=== PATIENT | female | born 1995 | race Caucasian/White ===

== ENCOUNTER 2021-03-28 21:37 | Inpatient (IN) ==
[2021-03-28] MEDS ORDERED: LACTATED RINGER'S 1,000 ML IV PRN (23:34)
[2021-03-28] MEDS ORDERED: OXYTOCIN 30 UNITS/500 ML BAG IV PRN ×2 (23:34→23:50)
--- NOTE | 2021-03-28 23:46 | History & Physical Report ---
Date of Service March 28, 2021 Assessment & Plan (1) Postmaturity , 40-42 weeks gestation: (2) PROM (premature rupture of membranes): Plan: fetus category one, gbs negative. not laboring currently, srom x 7 hours. Discussed options of continued expectant management as no need to perez things OR starting pitocin now to get labor going. Discussed the risks of prolonged rupture and the risk of infection really starting to go up at 24 hours. They are considering their options. Did discuss that at 12 hours , if no significant contractions, probably really need to consider pitocin augmentation. They express understanding. anticipate . History of Present Illness Chief Complaint: rom Primary Care Provider: John Jones MD Patient is a 25yowf with iup at 40 4/7 who presents to labor and delivery with intermittent gushing of fluid. First noted at work at 4:30pm--underwear soaked and onto pants. Has noted intermittently since then, clear. Does not smell like urine. Has not really noted the onset of contractions. +fm. essentially uncomplicated. +sma but fob tested negative. labs--O+/ab-/ri/rprnr/hepb-/hiv-/gtt x 2 neg/ afp neg/ cf neg/ cfDNA low risk/ gc/ct neg/ gbs neg. Allergies Allergy/AdvReac Type Severity Reaction Status Date / Time No Known Allergies Allergy Verified 03/28/21 21:58 Home Medications Medication Instructions Recorded Confirmed Type doxylamine 10 mg-pyridoxine (vit 1 tab PO HS 08/26/20 03/28/21 History B6) 10 mg tablet,delayed release (Diclegis) ketoconazole 2 % shampoo 1 applic TOPICAL 3XWK #360 ml 11/13/20 03/28/21 Rx diphenhydramine HCl 50 mg capsule 50 mg PO HS 12/20/20 03/28/21 History ([employer] SleepGels) vit no.95-ferrous 1 tab PO HS 12/20/20 03/28/21 History fumarate 28 mg-folic acid 800 mcg tablet () Patient History Medical History Anxiety and depression no meds Leukocytosis Seborrheic dermatitis of scalp Surgical History S/P wisdom tooth extraction Family History Brother VSD (ventricular septal defect) Other Asthma Depression Diabetes Dyslipidemia Heart disease Hypertension Denies family history of Cervical cancer Ovarian cancer Breast cancer Colorectal cancer Uterine cancer Social History Smoking Status: Never smoker Hx Alcohol Use: No Hx Substance Use: No Preferred Language: Tuvaluan Communication Ability: Effective 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 marital status: marital status details: Maco (24) [phone] Current Living Situation: Spouse Current Living Situation Comment: house with current occupational status: employed and student current occupation: external relations director, getting masters in [employer] Other Information That Helps Us Care for You: No Feels Safe at Home: Yes Safety Concerns: Feels Safe At This Time Assistive Devices: None 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 efm--120s with mod variability, accels to 160s, no decels. Results & Data ([facility]) Vital Signs (Past 12 Hours) Vital Signs Temp Pulse Resp BP 03/28/21 22:01 36.7 C 86 18 138/89 03/28/21 21:55 36.7 C 93 H 18 148/99 H Code Status & VTE Plan VTE Prophylaxis Plan VTE Prophylaxis will be ordered: No Coding Level of Care Code None Diagnoses Postmaturity , 40-42 weeks gestation O48.0 PROM (premature rupture of membranes) O42.90
[2021-03-29 00:07] LABS: Hematocrit (blood only) 37.3 % (37-47); Hemoglobin 12.9 g/dL (12.0-16.0); Mean Corpuscular Hemoglobin 32.7 pg (25-34); Mean Corpuscular Hgb Conc 34.6 g/dL (32-36); Mean Corpuscular Volume 94.7 fL (80-100); Platelet Count 362 K/uL (130-400); RDW Standard Deviation 45.4 fL (36.4-46.3); Red Blood Count 3.94 M/uL (4.2-5.4); White Blood Count 15.51 K/uL (4.8-10.8)
[2021-03-29 02:55] LABS: Alanine Aminotransferase 21 U/L (12-78); Albumin Level 2.8 gm/dl (3.4-5.0); Aspartate Aminotransferase 17 U/L (15-37); BUN Creatinine Ratio 17.2 (10-20); Blood Urea Nitrogen 10 mg/dl (7-18); Carbon Dioxide 23 mmol/L (21-32); Chloride 109 mmol/L (98-107); Creatinine Clr Calc Pharmacy 147.5 ml/min; Est GFR (African American) > 150.0 ml/min; Est GFR (Non-African American) 131.3 ml/min; Glucose 81 mg/dl (70-99); Potassium 3.6 mmol/L (3.5-5.1); Sodium 139 mmol/L (136-145)
[2021-03-29 02:58] LABS: Albumin Globulin Ratio 0.7 (0.9-2); Alkaline Phosphatase 96 U/L (45-117); Bilirubin,Total 0.4 mg/dl (0.2-1); Globulin 3.8 gm/dl (2.5-4.0); Total Protein 6.6 gm/dl (6.4-8.2)
[2021-03-29] MEDS ORDERED: ONDANSETRON INJ 2 MG/ML 2 ML VIAL IV PRN (04:32)
[2021-03-29] MEDS ORDERED: ONDANSETRON INJ 2 MG/ML 2 ML VIAL ONE (04:33)
--- NOTE | 2021-03-29 04:56 | Labor Progress Brief Note ---
Date of Service March 29, 2021 Subjective Patient got up to the bathroom and had srom, more clear. now much more uncomfortable Assessment & Plan (1) PROM (premature rupture of membranes): Plan: now laboring. Fetus reassuring. Offered epidural, declines. anticipate . Admission and Anticipated Discharge Date Admission Date: March 28, 2021 Physical Exam Constitutional: WD/WN, vitals as above Psychiatric: A+Ox3, euthymic affect Genitourinary: cx--6/7 per nursing toco--q2-3min, pit at 6 efm--120s with mod variability , small accels, variables with some contractions Results & Data ([facility]) Vital Signs (Past 12 Hours) Vital Signs Temp Pulse Resp BP 03/29/21 03:50 76 131/84 03/29/21 03:48 36.7 C 18 03/29/21 02:52 75 137/93 03/29/21 01:50 89 140/96 03/29/21 00:16 36.7 C 106 H 18 140/91 03/28/21 23:30 36.7 C 18 03/28/21 22:01 36.7 C 86 18 138/89 03/28/21 21:55 36.7 C 93 H 18 148/99 H Coding Level of Care Code None Diagnoses PROM (premature rupture of membranes) O42.90
[2021-03-29] MEDS ORDERED: LIDOCAINE 1% LOCAL 20 ML VIAL ONE (05:25)
[2021-03-29] MEDS ORDERED: oxyCODONE/ACETAMINOPHEN 5mg/325mg TAB PO PRN ×2 (05:46→12:50)
[2021-03-29] MEDS ORDERED: ACETAMINOPHEN 325 MG TAB PO PRN ×2 (05:46→12:50)
--- NOTE | 2021-03-29 05:53 | Delivery Summary ---
Vaginal Delivery Summary Date of Service March 29, 2021 Pre-operative Diagnosis: at 40 4/7 prom Post-operative Diagnosis: same Procedure: pitocin augmentation vavd at the outlet left sulcal laceration and repair. EBL: 350cc Anesthesia: local lidocaine Procedure: The patient presented to labor and delivery with prom. She walked for a little and then pitocin augmentation was started. She underwent srom of the forebag and her contractions significantly increased. She went from 6-10cm in about 30 minutes and felt a severe urge to push. The ant lip of the cervix was manually reduced and then the patient pushed with good effort. FHT in the 70s-100 during push . She brought the baby down very well. She was able to get the head to and then secondary to pain, I applied the vacuum and with one pull, the head was brought through the introitus. A viable female infant in keyur position. The nose and mouth were bulb suctioned on the perineum. A tight nuchal cord was identified and clamped and cut on the perineum. The rest of the baby was then delivered without difficulty. The was placed in the maternal abdomen for drying and attention briefly and then was taken to the warmer. Cord blood obtained. Placenta delivered spontaneous, intact with a three vessel cord. Cervix/perineum/rectum were intact. A left sulcal laceration was repaired in the normal standard fashion after infiltrating with 1% lidocaine. Hemostasis obtained with dilute pitocin and fundal massage. Apgars were 7/9. Mother and baby doing well at the end of the delivery. Vaginal Delivery Summary and 2nd Degree LAC (actually just a left sulcal laceration. perineum not involved.) [facility] Vaginal Delivery Charge Delivery Type Details: and 2nd Degree LAC (actually just a left sulcal laceration. perineum not involved.)
[2021-03-29] MEDS: IBUPROFEN 600 MG TAB PO PRN ×3 (06:16→21:39)
[2021-03-29] MEDS ORDERED: SUPERCREAM 0.870% 15 GM JAR EXT PRN (12:50)
[2021-03-29] MEDS ORDERED: BENZOCAINE 20% AER SPR 82.5 GM CAN EXT PRN (12:50)
[2021-03-29] MEDS ORDERED: IBUPROFEN 600 MG TAB PO PRN (12:50)
[2021-03-29] MEDS ORDERED: bisacodyL 10 MG SUPP PR PRN (12:50)
[2021-03-29] MEDS ORDERED: HYDROCORTISONE ACETATE 25 MG SUPP PR PRN (12:50)
[2021-03-29] MEDS ORDERED: OXYTOCIN 30 UNITS/500 ML BAG IV PRN (12:50)
[2021-03-29] MEDS ORDERED: DIPHTHERIA/TETANUS/PERTUSSIS 0.5 ML SYR/VIAL IM ONE (12:50)
[2021-03-29] MEDS: DOCUSATE SODIUM 100 MG CAP PO SCH (20:48)
[2021-03-30 06:45] LABS: Hematocrit (blood only) 26.9 % (37-47); Mean Corpuscular Hemoglobin 31.9 pg (25-34); Mean Corpuscular Hgb Conc 33.5 g/dL (32-36); Mean Corpuscular Volume 95.4 fL (80-100); Mean Platelet Volume 10.5 fL (7.4-10.4); Platelet Count 288 K/uL (130-400); RDW Coefficient of Variation 13.2 % (11.5-14.5); RDW Standard Deviation 45.8 fL (36.4-46.3); Red Blood Count 2.82 M/uL (4.2-5.4); White Blood Count 12.15 K/uL (4.8-10.8)
--- NOTE | 2021-03-30 07:21 | Obstetrical Progress Note ---
Date of Service March 30, 2021 Assessment & Plan (1) Encounter for care and examination after delivery: satisfactory post progress continue current care plan Day #:: 1 Subjective Ambulation: ambulating normally Voiding: incontinence (mild urge incontinence) Passing Gas:: Yes Diet Tolerance:: regular diet Lochia:: Small Feeding Type:: breast feeding Review of Systems All systems reviewed & are unremarkable except as noted in HPI & below Physical Exam Constitutional WD/WN, vitals as above Psychiatric A+Ox3, euthymic affect Genitourinary OB Exam Abdomen: + fundal height Fundus: + firm and + relation to umbilicus (1 below U) Results & Data ([facility]) Vital Signs (Past 12 Hours) Vital Signs Temp Pulse Pulse Resp BP BP BP 03/30/21 05:04 98.2 F 97 H 16 118/79 03/30/21 03:30 98.1 F 94 H 18 130/91 03/29/21 23:18 98.1 F 88 16 127/87 03/29/21 20:00 98.1 F 98 H 126/80 Pulse Ox 03/30/21 05:04 98 03/30/21 03:30 03/29/21 23:18 98 03/29/21 20:00
[2021-03-30] MEDS: DOCUSATE SODIUM 100 MG CAP PO SCH ×2 (07:57→20:28)
[2021-03-30] MEDS: IBUPROFEN 600 MG TAB PO PRN ×2 (07:57→14:57)
[2021-03-30] MEDS: PRENATAL VITAMIN 1 TAB PO SCH (07:57)
[2021-03-30] MEDS ORDERED: bisacodyL 5 MG TABEC PO SCH (20:00)
[2021-03-31] MEDS: IBUPROFEN 600 MG TAB PO PRN ×2 (00:17→07:26)
--- NOTE | 2021-03-31 06:27 | Obstetrical Progress Note ---
Date of Service <Brian Posadas DO - Last Filed: 03/31/21 08:04> March 31, 2021 Assessment & Plan <Brian Posadas DO - Last Filed: 03/31/21 08:04> (1) Encounter for care and examination after delivery: 25 year old s/p Day 3 - Vital signs reviewed and WNL - Hemoglobin reviewed, 9.0 today. - Blood type: O+, GBS0, Rubella Immune - Pt doing well clinically. - Pain controlled on analgesics - Patient counseled on discharge instructions. <Lizz Wilson MD, FACOG - Last Filed: 03/31/21 08:04> (1) Encounter for care and examination after delivery: Subjective <Brian Posadas DO - Last Filed: 03/31/21 08:04> Ambulation: ambulating normally Voiding: no voiding problems Passing Gas:: Yes Diet Tolerance:: regular diet Lochia:: Small Feeding Type:: breast feeding Current Pain Level(1-10): 0 Review of Systems Denies fever, chills, sweats Denies shortness of breath, difficulty breathing, chest pain, palpitations, chest pressure. Denies breast pain. Denies dysuria. Denies headache or changes in vision Physical Exam <Brian Posadas DO - Last Filed: 03/31/21 08:04> General: Alert, oriented. No acute distress. Cardiac: Regular rate and rhythm, no murmurs/rubs/gallops. Respiratory: Clear to auscultation bilaterally a/p, no wheezes/rales/rhonchi. No increased work of breathing. Symmetrical chest rise. No respiratory distress. Abdomen: Soft, nontender, nondistended. Bowel sounds present. Uterus: Uterine fundus firm, palpable 2 cm below umbilicus. Lower Extremities: No lower extremity edema or swelling. No deep calf pain. Nikolay's negative bilaterally Results & Data ([facility]) <Brian Posadas DO - Last Filed: 03/31/21 08:04> Vital Signs (Past 12 Hours) Vital Signs Temp Pulse Resp BP Pulse Ox 03/30/21 23:10 36.7 C 93 H 16 129/82 97 03/30/21 20:15 18 03/30/21 19:13 36.7 C 99 H 16 146/89 H 99 <Lizz Wilson MD, FACOG - Last Filed: 03/31/21 08:04> Co-Signing Physician Notes Resident Physician Supervision Note: I was present with Dr. Posadas during the history and exam. I discussed the case with the resident and agree with the findings and plan as documented in the note. Any exceptions or clarifications are listed here: [None] Documented By: Lizz Wilson MD, FACOG Resident Activity Tracking <Brian Posadas DO - Last Filed: 03/31/21 08:04> Resident Involvement: Resident Care Provided Care Provided: OB Delivery
[2021-03-31 06:42] LABS: Hematocrit (blood only) 25.7 % (37-47); Hemoglobin 8.6 g/dL (12.0-16.0)
[2021-03-31] MEDS: PRENATAL VITAMIN 1 TAB PO SCH (07:26)
[2021-03-31] MEDS: DOCUSATE SODIUM 100 MG CAP PO SCH (07:26)
== END 2021-03-31 10:15 | disposition home or self-care (01) | DRG 806 ==
LOC: OPB 21:37 → 4S1 21:39 → 4S2 03-29 08:43

== ENCOUNTER 2023-03-10 13:25 | Inpatient (IN) ==
[2023-03-10] MEDS ORDERED: LIDOCAINE 1% LOCAL 20 ML VIAL INFIL PRN (13:52)
[2023-03-10] MEDS ORDERED: OXYTOCIN 30 UNITS/500 ML BAG IV PRN (13:52)
[2023-03-10] MEDS ORDERED: LACTATED RINGER'S 1,000 ML IV PRN ×2 (13:52→18:47)
[2023-03-10 14:32] LABS: Hematocrit (blood only) 37.2 % (37.0-47.0); Hemoglobin 13.2 g/dl (12.0-16.0); Mean Corpuscular Hemoglobin 31.8 pg (25.0-34.0); Mean Corpuscular Hgb Conc 35.5 g/dL (32.0-36.0); Mean Corpuscular Volume 89.6 fL (80.0-100.0); Platelet Count 292 K/uL (130-400); RDW Coefficient of Variation 12.7 % (11.5-14.5); RDW Standard Deviation 41.8 fL (36.4-46.3); Red Blood Count 4.15 M/uL (4.20-5.40); White Blood Count 10.42 K/ul (4.8-10.8)
--- NOTE | 2023-03-10 14:37 | History & Physical Report ---
Date of Service March 10, 2023 Assessment & Plan (1) Encounter for supervision of normal in multigravida: Plan: Admit to L&D. EFM/toco. Labs. Does not desire epidural. Continue labor. Admission and Anticipated Discharge Date Admission Date: March 10, 2023 History of Present Illness Chief Complaint: contractions, ?ROM Primary Care Provider: John Jones MD 27yo @ 40 0/7, presented to L&D with contractions and leaking fluid. + movement, no vaginal bleeding. with +SMA (FOB negative) and rubella non-immune. Allergies Allergy/AdvReac Type Severity Reaction Status Date / Time No Known Allergies Allergy Verified 03/09/23 13:28 Home Medications Medication Instructions Recorded Confirmed Type folic acid PO 07/24/22 03/09/23 History ferrous sulfate 325 mg (65 mg 325 mg PO DAILY 03/10/23 03/10/23 History iron) tablet (iron) Patient History Medical History Anxiety and depression Leukocytosis Seborrheic dermatitis of scalp Varicella vaccination Surgical History S/P placement of implantable collamer lens (ICL) S/P wisdom tooth extraction Family History Brother VSD (ventricular septal defect) Other Asthma Depression Diabetes Dyslipidemia Heart disease Hypertension Denies family history of Cervical cancer Ovarian cancer Breast cancer Colorectal cancer Uterine cancer Social History Smoking Status: Never smoker Do You Dip or Chew Tobacco: No; Hx Alcohol Use: No Hx Substance Use: No Preferred Language: Qatari Communication Ability: Effective 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 Beliefs That Will Affect Care: None marital status: marital status details: Maco Terrance(26) [phone] Current Living Situation: Spouse and Family Current Living Situation Comment: house with , daughter, no pets current occupational status: employed 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 Constitutional: WD/WN, vitals as above Respiratory: normal respiratory effort, lungs clear to auscultation no respiratory distress Cardiovascular: Rate/Rhythm: regular rate and regular rhythm Gastrointestinal (Abdomen): Inspection/Auscultation: abdomen normal to inspection Percussion/Palpation: abdomen soft; abdomen nontender Gravid. No s/s chorio or abruption. Skin: no rashes, warm and dry Psychiatric: A+Ox3, euthymic affect Results & Data Vital Signs (Past 12 Hours) Vital Signs Temp Pulse Resp BP 03/10/23 13:41 36.6 C 20 03/10/23 14:09 71 135/92 03/10/23 13:59 83 144/90 H 03/10/23 13:50 95 H 166/98 H 03/10/23 13:37 83 160/99 H Coding Level of Care Code None Diagnoses Encounter for supervision of normal in multigravida Z34.80
[2023-03-10 14:48] LABS: Albumin Globulin Ratio 1.3 (0.9-2); Albumin Level 3.8 gm/dl (3.4-5.0); BUN Creatinine Ratio 12.1 (10-20); Bilirubin,Total 0.4 mg/dl (0.2-1.0); Calcium 9.7 mg/dl (8.6-10.3); Creatinine Clr Calc Pharmacy 132.3 ml/min; Est GFR (African American) 141.3 ml/min; Est GFR (Non-African American) 121.9 ml/min; Potassium 3.8 mmol/L (3.5-5.1); Total Protein 6.8 gm/dl (6.0-8.3)
[2023-03-10] MEDS: OXYTOCIN 30 UNITS/500 ML BAG IV PRN ×3 (15:41→18:30)
--- NOTE | 2023-03-10 16:02 | Delivery Summary ---
Vaginal Delivery Summary Date of Service March 10, 2023 Vaginal Delivery Summary [facility] Vaginal Delivery Summary: Pre-delivery diagnoses: 27yo @ 40 0/7, spontaneous labor, SMA carrier, rubella non-immune Post-delivery diagnoses: same Procedure: spontaneous vaginal delivery Surgeon: Joyce Key DO Complications: none Findings: Viable male . Apgars: 8/9. Weight pending, please see nursery records. Estimated blood loss: 300ml Description of delivery: The patient presented in labor, underwent AROM for clear fluid, and progressed to complete without anesthesia. She then began to push. She spontaneously vaginally delivered a viable from the cephalic presentation. The head delivered in SOFIA position. Nuchal cord x 1, easily reduced. The anterior shoulder delivered, followed by the posterior shoulder, followed by the body. The baby was placed on mother's abdomen and a spontaneous cry was heard. Delayed cord clamping was employed, and the cord was doubly clamped and cut. Cord blood was obtained. The placenta was delivered spont aneously intact with a 3-vessel cord. The uterus and vagina were swept of clots and debris. IV pitocin was given. The uterus became firm. The cervix, vagina, and perineum were inspected and no lacerations were noted. Excellent hemostasis was observed. The mother and baby are recovering in stable and good condition in the room. Sponge and instrument counts were correct x 2. Joyce Key DO [facility] Vaginal Delivery Charge Vaginal Delivery Codes: 29081 global code for the antepartum, delivery, and post- Delivery Type Details: [facility]
[2023-03-10] MEDS ORDERED: HYDROCORTISONE ACETATE 25 MG SUPP PR PRN (16:20)
[2023-03-10] MEDS ORDERED: DIPHTHERIA/TETANUS/PERTUSSIS Vaccine (Tdap, Age 7+yrs) 0.5mL SYR/VL IM ONE (16:20)
[2023-03-10] MEDS ORDERED: IBUPROFEN 600 MG TAB PO PRN (16:20)
[2023-03-10] MEDS ORDERED: BENZOCAINE 20% SPRY 85 APPLN/85 GM CAN EXT PRN (16:20)
[2023-03-10] MEDS ORDERED: MEASLES, MUMPS & RUBELLA VIRUS VIAL SQ ONE (16:20)
[2023-03-10] MEDS ORDERED: bisacodyL 10 MG SUPP PR PRN (16:20)
[2023-03-10] MEDS ORDERED: oxyCODONE/ACETAMINOPHEN 5mg/325mg TAB PO PRN (16:20)
[2023-03-10] MEDS: ACETAMINOPHEN 325 MG TAB PO PRN (16:34)
[2023-03-10] MEDS ORDERED: CALCIUM CARBONATE 500 MG CHEWABLE TAB PO PRN (17:29)
[2023-03-10] MEDS ORDERED: METHYLERGONOVINE MALEATE 0.2 MG/ML AMP IM STA (18:12)
[2023-03-10] MEDS ORDERED: LACTATED RINGER'S 500 ML IV ONE (18:12)
--- NOTE | 2023-03-10 18:18 | Obstetrical Progress Note ---
Date of Service March 10, 2023 Assessment & Plan Admission and Anticipated Discharge Date Admission Date: March 10, 2023 Subjective Called to room, patient passed clots and then had some continued bleeding. She has not urinated since delivery. She is awake and talking. Bladder drained. Fundus is firm. IM methergine given, continue pitocin. IV fluid bolus. I ordered H/H. Vitals are stable. Suspect most likely uterine atony d/t full bladder. Will continue to monitor closely. Total EBL 625cc (weighed chux pads). Results & Data Vital Signs (Past 12 Hours) Vital Signs Temp Pulse Resp BP 03/10/23 13:41 36.6 C 20 03/10/23 18:06 84 147/93 H 03/10/23 18:04 90 146/93 H 03/10/23 17:51 85 133/93 03/10/23 17:36 96 H 127/75 03/10/23 17:21 86 134/92 03/10/23 17:06 78 119/81 03/10/23 16:52 97 H 139/81 03/10/23 16:36 85 18 129/82 03/10/23 16:21 83 18 126/86 03/10/23 16:06 36.6 C 76 18 140/94 03/10/23 15:42 68 183/88 H 03/10/23 14:09 71 18 135/92 03/10/23 13:59 83 144/90 H 03/10/23 13:50 95 H 166/98 H 03/10/23 13:37 83 160/99 H PG Care Time/CCT Total # of Minutes Spent Total Time Spent with Patient: Total time spent is greater than 50% in coordination of care (as documented) at patient's floor/unit and/or counseling patient: Coding Level of Care Code None Diagnoses
[2023-03-10] MEDS ORDERED: LACTATED RINGER'S 1,000 ML IV ONE (18:31)
[2023-03-10 18:44] LABS: Hematocrit (blood only) 33.9 % (37.0-47.0); Hemoglobin 11.9 g/dl (12.0-16.0)
[2023-03-10] MEDS ORDERED: CARBOPROST TROMETHAMINE 250 MCG/ML AMPUL IM ONE (19:09)
[2023-03-10] MEDS ORDERED: DOCUSATE SODIUM 100 MG CAP PO SCH (21:00)
[2023-03-11 06:25] LABS: Hemoglobin 9.8 g/dl (12.0-16.0)
--- NOTE | 2023-03-11 07:06 | Obstetrical Progress Note ---
Date of Service <Marni Prater MD - Last Filed: 03/11/23 07:06> March 11, 2023 Assessment & Plan <Marni Prater MD - Last Filed: 03/11/23 07:06> (1) Spontaneous vaginal delivery: Patient with the above mentioned history and findings was evaluated at bedside and found awake, alert, oriented in all spheres, afebrile, and in no acute distress. Vital signs showed no fever and blood pressures remained stable and has remained without symptoms of severity (e.g. vision changes, headaches, oliguria, etc.). Her pain intensity is rated as a 3 in a 10-point scale, and is adequately controlled with analgesia. Her blood type is O positive and today's hemoglobin is adequate at 9.8 g/dL which is compared to yesterday's values (11.9). Serologies are negative for GBS and patient is Rubella immune. Overall, patient is doing well clinically. Therefore, will encourage ambulation as tolerated and will resume regular diet. Will continue monitoring pain levels and management with Motrin PRN. Patient is encouraged to breastfeed and to notify changes in normal lochia such as excessive bleeding (using more than 1 pad per hour), foul smell, or purulent appearance. Patient was counselled on discharge instructions. She is to make an appointment with her OB for [address] discharge for follow up evaluation. All questions were answered. <Joyce Key DO - Last Filed: 03/11/23 08:28> (1) Spontaneous vaginal delivery: Subjective <Marni Prater MD - Last Filed: 03/11/23 07:06> Chelly is a 27 y/o female who is now PPD # 1 following at 40 0/7 weeks. Reports feeling well overall this morning. Refers mild abdominal cramping & 3/10 pain well managed on analgesics. Voiding spontaneously without issues. Tolerating meals overnight and able to ambulate some. She is passing gas and has bowel movements. Some persistent lochia with some improvement this morning. Bottle feeding. Constitutional: no fever, no chills or no sweats Denies shortness of breath or difficulty breathing Cardiovascular: no chest pain or no palpitations Breast: no breast pain Genitourinary (female): no dysuria Neurologic: no headache(s) Denies changes in vision Physical Exam <Marni Prater MD - Last Filed: 03/11/23 07:06> General: Alert. Oriented to person, time, and place. Afebrile. No acute distress. Eyes: pupils equal and reactive to light bilaterally, extraocular movements intact. Cardiac: Regular rate and rhythm, no murmurs/rubs/gallops. Respiratory: Clear to auscultation bilaterally a/p, no wheezes/rales/rhonchi. No increased work of breathing. Symmetrical chest rise. No respiratory distress. Abdomen: Soft, nontender, nondistended. Bowel sounds present. Uterus: Uterine fundus firm, non-tender, and palpable at the umbilicus. Lower Extremities: Some lower extremity swelling. No deep calf pain. Nikolay's negative bilaterally. Psych: Euthymic affect. Mood and affect congruence. Regular speech rate and content. Results & Data <Marni Prater MD - Last Filed: 03/11/23 07:06> Vital Signs (Past 12 Hours) Vital Signs Temp Pulse Pulse Resp BP BP Pulse Ox 03/11/23 04:50 37 C 90 18 114/77 97 03/11/23 00:40 36.7 C 89 18 127/85 98 03/10/23 21:15 03/10/23 21:15 36.8 C 74 18 134/88 98 03/10/23 19:30 37.1 C 03/10/23 20:30 82 152/89 H 03/10/23 20:20 78 149/81 H 03/10/23 20:10 81 158/93 H 03/10/23 20:00 88 163/92 H 03/10/23 19:50 80 152/104 H 03/10/23 19:39 69 147/90 H O2 Del Method 03/11/23 04:50 Room Air 03/11/23 00:40 Room Air 03/10/23 21:15 Room Air 03/10/23 21:15 Room Air 03/10/23 19:30 03/10/23 20:30 03/10/23 20:20 03/10/23 20:10 03/10/23 20:00 03/10/23 19:50 03/10/23 19:39 <Joyce Key DO - Last Filed: 03/11/23 08:28> Co-Signing Physician Notes Resident Physician Supervision Note: I was present with Dr. Prater during the history and exam. I discussed the case with the resident and agree with the findings and plan as documented in the note. Any exceptions or clarifications are listed here: PPD1 doing well. Vitals stable, bleeding stopped. Would like to go home. Reviewed DC instructions, followup office 6w PP. Documented By: Joyce Key, Resident Activity Tracking <Marni Prater MD - Last Filed: 03/11/23 07:06> Resident Involvement: Resident Care Provided Care Provided: OB Delivery
[2023-03-11] MEDS: ACETAMINOPHEN 325 MG TAB PO PRN (07:47)
[2023-03-11] MEDS ORDERED: PRENATAL VITAMIN 1 TAB PO SCH (08:00)
[2023-03-11] MEDS ORDERED: bisacodyL 5 MG TABEC PO SCH (20:00)
== END 2023-03-11 17:15 | disposition home or self-care (01) | DRG 807 ==
LOC: OPB 13:25 → 4S1 13:26 → 4E2 21:58
DX: Z3A.40 40 weeks gestation of pregnancy; O69.81X0 Labor and delivery complicated by cord around neck, without compression, not applicable or unspecified; Z37.0 Single live birth; O75.89 Other specified complications of labor and delivery; O48.0 Post-term pregnancy; Z14.8 Genetic carrier of other disease

== ENCOUNTER 2025-05-08 05:35 | Inpatient (IN) ==
--- NOTE | 2025-04-27 14:40 | Anesthesiology Consultation ---
Date of Service April 27, 2025 Assessment & Plan (1) Encounter for pre-operative examination: Chart Review Chart Review: entry rep initiated -Infectious Disease screening: Per PAT nursing assessment on 04/27/25. No known infectious disease contacts in past 10 days or current infectious disease symptoms. No recent travel outside the country. [facility] visit 03/06/25= "referred for assessment and ECHO as a new patient due to her carrying dichorionic diamniotic twins... history of her brother have a VSD for which he underwent surgical repair at age 4 months... doing well... current otherwise uncomplicated... the twins' hearts appear structurally normal. No further follow up in the cardiology clinic is necessary prior to the delivery unless a new concern or questions arises. I do not see any contraindication from a cardiac standpoint to delivering at [facility] as she is currently planning... pediatric cardiology team at [facility] could be consulted at any time should there be any concern of baby's CV status... " ECHO 03/06/25= ImpressionA echocardiogram performed on 28 6/7 weeks gestation Twin A Structurally normal heart. No evidence of major cardiac disease is detected Normal biventricular systolic function. No effusions. ECHO 03/06/25= Impression B echocardiogram performed on 28 6/7 weeks gestation Twin gestation twin B Structurally normal heart. No evidence of major cardiac disease is detected Normal biventricular systolic function No effusions History Surgery Operation Date: 05/08/25 07:30 Proposed Procedures p Section in LD (Delivery Baby through abdominal incision) Twins - Carson Gauthier MD, FACOG Height/Weight Height: 5 ft 2 in Weight: 90.718 kg Allergies Allergy/AdvReac Type Severity Reaction Status Date / Time No Known Allergies Allergy Verified 04/27/25 14:13 Medications Home Medications Medication Instructions Recorded Confirmed Last Taken aspirin 81 mg chewable tablet 81 mg PO DAILY 12/06/24 04/27/25 04/04/25 21:00 ferrous sulfate 325 mg (65 mg 325 mg PO DAILY 03/28/25 04/27/25 04/04/25 21:00 iron) tablet (Iron (ferrous sulfate)) no.58-iron bisglycinate 2 cap PO DAILY 09/12/25 09/12/25 Unknown 10 mg iron-folic acid 400 mcg capsule Past Medical History Medical History Anxiety and depression no meds Carrier of spinal muscular atrophy History of myopia History of postoperative nausea and vomiting Iron deficiency anemia pt verifies hx, not sure current status Rectocele Twin Varicella vaccination Past Family History Family History Brother VSD (ventricular septal defect) Other Asthma Depression Diabetes Dyslipidemia Heart disease Hypertension Denies family history of Cervical cancer Ovarian cancer Breast cancer Colorectal cancer Uterine cancer Past Surgical History Surgical History S/P placement of implantable collamer lens (ICL) R&L eye. S/P wisdom tooth extraction Social History Smoking Status: Never smoker Do You Dip or Chew Tobacco: No Hx Alcohol Use: No Hx Substance Use: No substance use type: does not use
--- NOTE | 2025-05-07 12:22 | History & Physical Report ---
Date of Service May 07, 2025 Assessment & Plan (1) 37 weeks gestation of : (2) Dichorionic diamniotic twin gestation: (3) Discordant growth in twin gestation: (4) growth restriction: (5) Maternal care for malpresentation of fetus, unspecified, fetus 1: Plan Admit on day of c/s. Plan labs, iv. Preop abx. reviewed consent and preop instructions and hospital course. she will ask anesthesia in am re: spouse accompanying her for spinal in OR. That is per their discretion. Pt aware and agreeable. History of Present Illness Chief Complaint: planned c/s Primary Care Provider: John Jones MD 29yo at 37+wks ega presents to LD on day of admission for planned c/s delivery of di-di twins, twin b with iugr (3rd%), twin a breech presentation, twin growth discordancy. Patients notes good fm of twins. No rom or vb. She had history of 2 prior vaginal deliveries without regional anesthesia and so is more worried about that procedure and asks if spouse can be with her. She denies pain. PNC c/b 1. Di di twins 2. Twin discordant growth, iugr twin b 3rd% 3. Twin a breech presentation. 4. Carrier sma, fob negative. 5. Family h/o CHD, twin echoes wnl x 2. PNL rhpos, ri, gbs pos. OBH: x 2 GYNH: nl paps no stds. Allergies Allergy/AdvReac Type Severity Reaction Status Date / Time No Known Allergies Allergy Verified 05/07/25 10:25 Home Medications Medication Instructions Recorded Confirmed Type aspirin 81 mg chewable tablet 81 mg PO DAILY 12/06/24 05/07/25 History ferrous sulfate 325 mg (65 mg 325 mg PO DAILY 03/28/25 05/07/25 History iron) tablet (Iron (ferrous sulfate)) no.58-iron bisglycinate 2 cap PO DAILY 04/27/25 05/07/25 History 10 mg iron-folic acid 400 mcg capsule Patient History Medical History Anxiety and depression no meds Carrier of spinal muscular atrophy History of myopia History of postoperative nausea and vomiting Iron deficiency anemia pt verifies hx, not sure current status Rectocele Twin Varicella vaccination Surgical History S/P placement of implantable collamer lens (ICL) R&L eye. S/P wisdom tooth extraction Family History Brother VSD (ventricular septal defect) Other Asthma Depression Diabetes Dyslipidemia Heart disease Hypertension Denies family history of Cervical cancer Ovarian cancer Breast cancer Colorectal cancer Uterine cancer Social History (Updated 04/26/25 @ 10:57 by Jenn Reddy RN) Smoking Status: Never smoker Do You Dip or Chew Tobacco: No; Hx Alcohol Use: No Hx Substance Use: No Preferred Language: Tamazight Communication Ability: Effective Communications Strategist Required: No Beliefs That Will Affect Care: None marital status: marital status details: Maco Pérezbeatris(28) [phone] Current Living Situation: Spouse and Family Current Living Situation Comment: house with , 2 children, no pets current occupational status: other current occupation: homemaker Feels Safe at Home: Yes Assistive Devices: None Review of Systems as per Subjective / HPI Physical Exam Constitutional: WD/WN, vitals as above Respiratory: normal respiratory effort, lungs clear to auscultation Cardiovascular: Rate/Rhythm: regular rate and regular rhythm Gastrointestinal (Abdomen): soft gravid nt fhts by u/s x 2 Musculoskeletal: no edema Neurologic: grossly normal Psychiatric: A+Ox3, euthymic affect Coding Level of Care Code None Diagnoses 37 weeks gestation of Z3A.37 Dichorionic diamniotic twin gestation O30.049 Discordant growth in twin gestation O30.009; O36.5990 growth restriction Maternal care for malpresentation of fetus, unspecified, fetus 1 O32.9XX1
[2025-05-08] MEDS ORDERED: SODIUM CHLORIDE 0.9% 100 ML IV PRN (05:48)
[2025-05-08 05:59] LABS: Hematocrit (blood only) 38.3 % (37.0-47.0); Hemoglobin 12.7 g/dl (12.0-16.0); Mean Corpuscular Hemoglobin 30.8 pg (25.0-34.0); Mean Corpuscular Volume 92.7 fL (80.0-100.0); Platelet Count 251 K/uL (130-400); RDW Standard Deviation 44.3 fL (36.4-46.3); Red Blood Count 4.13 M/uL (4.20-5.40); White Blood Count 8.87 K/ul (4.8-10.8)
[2025-05-08] MEDS: LACTATED RINGER'S 1,000 ML IV SCH ×3 (06:02→21:33)
[2025-05-08] MEDS: ACETAMINOPHEN 500 MG TAB PO SCH (06:03)
[2025-05-08] MEDS ORDERED: PHENYLEPHRINE HCL 25 MG/250 ML NSS IV ONE (06:59)
[2025-05-08] MEDS ORDERED: PHENYLEPHRINE 100MCG/ML 5ML SYR ONE (06:59)
[2025-05-08] MEDS ORDERED: ONDANSETRON INJ 2 MG/ML 2 ML VIAL ONE (07:02)
[2025-05-08] MEDS ORDERED: OXYTOCIN 10 UNITS/ML VIAL ONE (07:02)
[2025-05-08] MEDS ORDERED: MoRPHine SULFATE PF 1 MG/ML 10 ML AMP/VIAL ONE (07:02)
[2025-05-08] MEDS ORDERED: DEXAMETHASONE SOD INJ 4 MG/ML VIAL ONE (07:02)
[2025-05-08] MEDS: CITRIC ACID/SODIUM CITRATE 15 ML UDC PO SCH (07:19)
--- NOTE | 2025-05-08 07:22 | History & Physical Bridge Note ---
Date of Service May 08, 2025 History & Physical Bridge Note I have examined the patient, reviewed the History & Physical and in the interval since the performance of the History & Physical I have noted the following changes of clinical significance: no changes noted
[2025-05-08] MEDS ORDERED: NALOXONE HCL 1 MG in SODIUM CHLORIDE 0.9% 1,000 ML IV PRN (08:01)
[2025-05-08] MEDS ORDERED: NALOXONE HCL 0.4 MG/1 ML VIAL/CARP IV PRN (08:01)
[2025-05-08] MEDS ORDERED: NALBUPHINE HCL INJ 10 MG/ML AMP IV PRN (08:01)
[2025-05-08] MEDS ORDERED: HYDROmorphone INJ 0.5 MG/0.5 ML SYR IV PRN (08:01)
[2025-05-08] MEDS ORDERED: NALOXONE HCL 0.08 MG in SYRINGE 1.8 ML IV PRN (08:01)
[2025-05-08] MEDS ORDERED: LACTATED RINGER'S 500 ML IV PRN (08:01)
[2025-05-08] MEDS ORDERED: MoRPHine SULFATE PF 1 MG/ML 10 ML AMP/VIAL INT SPINAL ONE (08:01)
[2025-05-08] MEDS ORDERED: diphenhydrAMINE 50 MG/ML VIAL IV PRN (08:01)
[2025-05-08] MEDS ORDERED: MIDAZOLAM HCL 1 MG/ML 2ML VIAL ONE (08:09)
[2025-05-08] MEDS ORDERED: KETAMINE HCL 10MG/ML SYR ONE (08:09)
[2025-05-08] MEDS ORDERED: SODIUM CHLORIDE 0.9% 1,000 ML IV SCH (08:15)
[2025-05-08] MEDS ORDERED: NO NARCOTICS OR SEDATIVES SCH (08:15)
[2025-05-08] MEDS ORDERED: DC INTRASPINAL MORPHINE SCH (08:15)
[2025-05-08] MEDS ORDERED: BENZOCAINE 20% SPRY 85 APPLN/85 GM CAN EXT PRN (08:27)
[2025-05-08] MEDS ORDERED: HYDROCORTISONE ACETATE 25 MG SUPP PR PRN (08:27)
[2025-05-08] MEDS ORDERED: SENNA 8.6 MG TAB PO PRN (08:27)
[2025-05-08] MEDS ORDERED: DIPHTHER/TETAN/PERTUS Vaccine (Tdap, Adol/Adult) 0.5mL IM ONE (08:27)
[2025-05-08] MEDS ORDERED: CALCIUM CARBONATE 500 MG CHEWABLE TAB PO PRN (08:27)
[2025-05-08] MEDS ORDERED: MAGNESIUM HYDROXIDE SUSP 30 ML UDC PO PRN (08:27)
--- NOTE | 2025-05-08 08:30 | Post Operative Brief Note ---
Immediate Post Op Note Date of Surgery May 08, 2025 Pre & Post Diagnosis Operation Date: 05/08/25 07:30 Pre-Op Diagnosis: (1) 37 weeks gestation of : (2) Dichorionic diamniotic twin gestation: (3) Discordant growth in twin gestation: (4) growth restriction: (5) Maternal care for malpresentation of fetus, unspecified, fetus 1: Post-Op Diagnosis: (1) 37 weeks gestation of : (2) Dichorionic diamniotic twin gestation: (3) Discordant growth in twin gestation: (4) growth restriction: (5) Maternal care for malpresentation of fetus, unspecified, fetus 1: I identified the patient and participated in the time-out.: Yes Procedure Operation Date: 05/08/25 07:30 Actual Procedures p Primary Low Transverse Section in LD(Bilateral) - Deanna Gauthier MD, FACOG Surgeon Deanna Gauthier MD, FACOG Gas Pumper Jacqueline Quantitative Blood Loss (QBL) 1016 Findings Consistent with Post-Op Diagnosis (viable female infants x 2. normal uterus tubes and ovaries bilaterally) Fluids 1150 Specimens Specimen Description: 1. One placenta (1 clamp on baby "A" cord, 2 clamps on baby "B" cord)-->HOLD 2. Cord blood for baby "A" and baby "B" Drains Cox Catheter Anesthesia Type Spinal Complications none Disposition Accompanied Patient To Recovery: No Disposition: L&D
[2025-05-08] MEDS: KETOROLAC 30 MG/ML VIAL IV SCH (09:00)
--- NOTE | 2025-05-08 09:00 | Operative Report ---
Post Operative Report Pre & Post Diagnosis Operation Date: 05/08/25 07:30 Pre-Op Diagnosis: Primary section: (1) 37 weeks gestation of : (2) Dichorionic diamniotic twin gestation (3) Discordant growth in twin gestation (4) growth restriction (5) Maternal care for malpresentation of fetus, unspecified, fetus 1 Post-Op Diagnosis: Primary section: (1) 37 weeks gestation of (2) Dichorionic diamniotic twin gestation (3) Discordant growth in twin gestation (4) growth restriction (5) Maternal care for malpresentation of fetus, unspecified, fetus 1 I identified the patient and participated in the time-out.: Yes Procedure Operation Date: 05/08/25 07:30 Actual Procedures p Primary Low Transverse Section in LD; live female child "Baby A" born at 0758, live female child "Baby B" born at 0759(Bilateral) - Deanna Gauthier MD, FACOG Surgeon Deanna Gauthier MD, FACOG Chemist Enzymes Jacqueline Quantitative Blood Loss (QBL) 1016 Findings Consistent with Post-Op Diagnosis (viable female infants x 2. normal uterus tubes and ovaries bilaterally) Fluids 1150 Specimens cord bloodx 2 Drains rasheed Anesthesia Type Spinal Complications none Disposition Accompanied Patient To Recovery: No Disposition: L&D Indications 29yo at 37+wks ega with di-di twins, iugr twin b, malpresentation twin a, for planned section. Description of Procedure The patient was taken to the operating room and identified. After adequate anesthesia was obtained, she was placed in the supine position with a leftward tilt on the operating table and prepped and draped in the usual sterile fashion. A rasheed catheter had already been placed. The knife was used to create a Pfannen steil skin incision that was carried down to the underlying layer of fascia. The fascia was nicked in the midline and this opening was extended laterally using Fierro scissors. Mikal clamps were placed on the superior and inferior aspect of the fascial incision tenting it upward and the underlying rectus muscles were dissected off the overlying fascia both sharply and bluntly using Fierro scissors. The rectus muscles were bluntly in the midline. The peritoneal cavity was bluntly entered into. This opening was stretched. The bladder blade was placed. The vesicouterine peritoneum was elevated and opened up into and the bladder flap was created digitally and bladder blade was replaced. The knife was used to create a hysterotomy and this opening was stretched. The operators hand was placed through the hysterotomy and the bladder blade was removed. The feet twin a were brought through hysterotomy and with fundal pressure delivered to level of scapulae. Arms were swept across anterior midline and head was flexed and delivered. The cord was clamped and cut and the infant's mouth and nares were bulb suctioned. The infant was handed off to the awaiting pediatricians. Cord blood was obtained. Twin b presented at hysterotomy with fundal pressure in vertex position. Amniotic sac ruptured and head flexed and delivered followed by shoulders and body. Infant crying and mouth and nose bulb suctioned. Cord clamped and cut and to awaiting check writer salesperson. Cord blood obtained. The placentas were manually expressed. The uterus was exteriorized and cleared of all clots and debris. Dilute IV Pitocin was begun. The uterine tone was improving. The hysterotomy was closed in a running interlocking fashion using 0 Vicryl followed by a second imbricating layer of 0 Vicryl. The hysterotomy was not hemostatic at left edge and single figure of eight suture of 2-0 vicryl placed with excellent hemostasis. The pelvis was suctioned. The uterus was returned to the abdomen. The gutters were cleared of all clots and debris. The hysterotomy was reinspected and noted to be hemostatic. The fascia was then closed in running fashion using 0 Vicryl. The subcutaneous fat was copiously irrigated and reapproximated using 2-0 chromic. The skin was closed in a subcuticular fashion using 4-0 monocryl. At this point the procedure was terminated. The patient was transferred to the recovery room in stable condition. All sponge, lap and needle counts are correct x2. I attest to the content of the Intraoperative Record and any orders documented therein. Any exceptions are noted below. OB Procedure Charges 06402
--- NOTE | 2025-05-08 09:03 | Anesthesiology Progress Note ---
Date of Service May 08, 2025 Anesthesia Post Procedure Vital Signs Vital Signs: Temp Pulse Resp BP Pulse Ox 05/08/25 09:01 59 L 100 05/08/25 08:56 60 100 05/08/25 08:54 60 121/73 05/08/25 08:51 61 100 05/08/25 08:46 66 98 05/08/25 08:44 58 L 133/77 05/08/25 08:41 69 99 05/08/25 08:36 61 100 05/08/25 08:34 36.6 C 20 100 05/08/25 08:34 62 136/77 05/08/25 07:23 73 127/80 05/08/25 07:22 36.8 C 05/08/25 05:48 36.8 C 18 05/08/25 05:42 82 125/90 Pain Intensity Abdomen: Pain Intensity: 5 Transfer of Care Handoff Completed per policy Notes Mental Status: alert / awake / arousable and participated in evaluation Patient Amnestic to Procedure: No Nausea / Vomiting: adequately controlled Pain: adequately controlled Airway Patency, RR, SpO2: stable & adequate BP & HR: stable & adequate Hydration State: stable & adequate Neuraxial Anesthesia: was administered and sensory block is resolving Anesthetic Complications: no major complications apparent and Pt Satisfied with anesthetic care
[2025-05-08] MEDS: OXYTOCIN 20 UNITS/LR 1,002 ML IV SCH (09:44)
[2025-05-08] MEDS: ONDANSETRON INJ 2 MG/ML 2 ML VIAL IV PRN (13:21)
[2025-05-08] MEDS: ACETAMINOPHEN 325 MG TAB PO SCH (16:34)
[2025-05-08] MEDS: SIMETHICONE 80 MG CHEW PO SCH (16:37)
[2025-05-08] MEDS ORDERED: Nursing to Pharmacy Communication SCH (17:30)
[2025-05-08] MEDS: PROMETHAZINE 6.25 MG/50.25 ML BAG IV PRN (18:48)
[2025-05-08] MEDS: DOCUSATE SODIUM 100 MG CAP PO SCH (21:34)
[2025-05-09] MEDS ORDERED: ONDANSETRON INJ 2 MG/ML 2 ML VIAL IV PRN (02:01)
[2025-05-09] MEDS ORDERED: PROMETHAZINE 12.5 MG/50.5 ML BAG IV PRN (02:01)
[2025-05-09] MEDS ORDERED: diphenhydrAMINE 50 MG/ML VIAL IV PRN (02:01)
[2025-05-09] MEDS ORDERED: diphenhydrAMINE Capsule 25 MG CAP PO PRN (02:01)
[2025-05-09] MEDS ORDERED: HYDROmorphone INJ 0.5 MG/0.5 ML SYR IV PRN (02:01)
--- NOTE | 2025-05-09 06:16 | Obstetrical Progress Note ---
Date of Service May 09, 2025 Assessment & Plan (1) examination following delivery: (2) Maternal care for malpresentation of fetus, unspecified, fetus 1: (3) growth restriction: (4) Discordant growth in twin gestation: (5) Carrier of spinal muscular atrophy: Plan 29 y/o POD 1 s/p for di/di twin delivery. complicated by twin B IUGR, twin A breech presentation, and twin growth discordancy. Feels well today. Vital signs stable Continue post- care Encourage ambulation and Pain controlled with ibuprofen Hgb stable Anticipate home discharge tomorrow, follow-up with Dr. Gauthier in 6 weeks. Admission and Anticipated Discharge Date Admission Date: May 08, 2025 Supervising Physician Co-Signing Physician Notes Resident Physician Supervision Note: I was present with Dr. Garcia during the history and exam. I discussed the case with the resident and agree with the findings and plan as documented in the note. Any exceptions or clarifications are listed here: pain well controlled. eating. no flatus yet. one episode of vomiting yesterday. voiding well. ambulating well. cor rrr, lung ctab, abd soft ff 2 down nt, incision c/d/i. non distended. nabs. ext nt calves. pod #1 s/p c/s doing well, routine care. hgb pending,?drawn yet. enc ambulation. cont diet. breast, rhpos, ri. Documented By: Deanna Gauthier MD, FACOG Subjective 29 y/o POD 1 s/p for di/di twin delivery. complicated by twin B IUGR, twin A breech presentation, and twin growth discordancy. Feeling well this morning. Did have episode of vomiting yesterday after lunch, did not eat dinner. Given zofran which seemed to have helped. Denies abdominal pain, fever/chills. Incision dressing off this morning. Ambulation: ambulating normally Voiding: no voiding problems Passing Gas:: no Diet Tolerance:: episode of vomiting yesterday, no dinner last night Lochia:: Small Feeding Type:: breast with bottle supplement Current Pain Level: minimal, controlled with ibuprofen Resting comfortably this AM in NAD. Denies JOHNSON, CP, SOB, LE pain/swelling. Physical Exam Physical Exam: General: patient resting comfortably, NAD, non-toxic in appearance, AA&O x 4, answers questions appropriately. Skin: warm, dry, intact HEENT: NC/AT, anicteric sclera, conjunctiva without injection, moist mucus membranes. Abd: +BS, soft, NT/ND, uterine fundus firm at umbilicus, caesarean incision C/D/I. Ext: warm, no clubbing/cyanosis or edema Neuro: nonfocal, patient AA&O x 4, speech intact, no facial droop, moving all extremities on command. Results & Data Vital Signs (Past 12 Hours) Vital Signs Temp Pulse Resp BP Pulse Ox O2 Del Method 05/09/25 04:30 36.8 C 78 18 111/73 98 Room Air 05/09/25 02:00 18 96 05/09/25 01:00 16 96 05/08/25 23:58 16 96 05/08/25 23:10 36.6 C 66 16 122/78 99 Room Air 05/08/25 23:00 18 97 05/08/25 21:56 16 98 05/08/25 20:54 16 98 05/08/25 20:30 Room Air 05/08/25 20:30 36.3 C L 64 16 121/75 99 Room Air 05/08/25 20:25 16 98
[2025-05-09 08:02] LABS: Hematocrit (blood only) 32.2 % (37.0-47.0); Hemoglobin 10.7 g/dl (12.0-16.0); Immature Granulocytes # (auto) 0.06 K/uL (0.01-0.20); Immature Granulocytes % (auto) 0.5 %; Mean Corpuscular Hemoglobin 31.0 pg (25.0-34.0); Mean Corpuscular Volume 93.3 fL (80.0-100.0); Platelet Count 213 K/uL (130-400); RDW Standard Deviation 44.7 fL (36.4-46.3); Red Blood Count 3.45 M/uL (4.20-5.40); White Blood Count 11.80 K/ul (4.8-10.8)
[2025-05-09] MEDS ORDERED: KETOROLAC 30 MG/ML VIAL IV PRN (08:22)
[2025-05-09] MEDS: FERROUS SULFATE 325 MG TAB PO SCH (08:34)
[2025-05-09] MEDS: PRENATAL VITAMIN 1 TAB PO SCH (08:34)
[2025-05-09] MEDS: IBUPROFEN 600 MG TAB PO SCH (10:36)
--- NOTE | 2025-05-10 05:35 | Obstetrical Progress Note ---
Date of Service May 10, 2025 Assessment & Plan (1) examination following delivery: (2) Maternal care for malpresentation of fetus, unspecified, fetus 1: (3) growth restriction: (4) Discordant growth in twin gestation: (5) Carrier of spinal muscular atrophy: Plan 29 y/o POD 2 s/p for di/di twin delivery. complicated by twin B IUGR, twin A breech presentation, and twin growth discordancy. Rh(+), rubella immune. Feels well today. Vital signs stable Continue post- care Encourage ambulation and Pain controlled with ibuprofen Hgb stable Anticipate home discharge tomorrow, follow-up with Dr. Gauthier in 6 weeks. Admission and Anticipated Discharge Date Admission Date: May 08, 2025 Supervising Physician Co-Signing Physician Notes Resident Physician Supervision Note: I interviewed and examined the patient. Discussed with Dr. Garcia and agree with findings and plan as documented in the note. Any exceptions or clarifications are listed here: POD2 s/p pCS for TIUP, doing well. VSS, exam benign, incision c/d/i. Continue routine care Documented By: Dodie Barrett MD Subjective 29 y/o POD 2 s/p for di/di twin delivery. complicated by twin B IUGR, twin A breech presentation, and twin growth discordancy. Feeling well this morning. Nausea and vomiting from yesterday has resolved, able to tolerate regular diet. Denies abdominal pain/diarrhea. Ambulation: ambulating normally Voiding: no voiding problems Passing Gas:: yes Diet Tolerance:: regular diet Lochia:: Small Feeding Type:: breast with bottle supplement Current Pain Level: minimal, controlled with ibuprofen Resting comfortably this AM in NAD. Denies JOHNSON, CP, SOB, LE pain/swelling. Physical Exam Physical Exam: General: patient resting comfortably, NAD, non-toxic in appearance, AA&O x 4, answers questions appropriately. Skin: warm, dry, intact HEENT: NC/AT, anicteric sclera, conjunctiva without injection, moist mucus membranes. Heart: +S1/S2, regular, no m/r/g Lungs: equal air entry bilaterally, no rales/rhonchi/wheezes Abd: +BS, soft, NT/ND, uterine fundus firm at umbilicus, caesarean incision C/D/I. Ext: warm, no clubbing/cyanosis or edema Neuro: nonfocal, patient AA&O x 4, speech intact, no facial droop, moving all extremities on command. Results & Data Vital Signs (Past 12 Hours) Vital Signs Temp Pulse Resp BP Pulse Ox O2 Del Method 05/10/25 01:00 36.9 C 87 18 119/74 97 Room Air 05/09/25 20:20 36.7 C 84 16 116/79 99 Room Air
[2025-05-10 06:26] LABS: Hematocrit (blood only) 30.3 % (37.0-47.0); Hemoglobin 10.1 g/dl (12.0-16.0)
[2025-05-10] MEDS: ACETAMINOPHEN 325 MG TAB ONE (10:44)
[2025-05-10] MEDS: IBUPROFEN 600 MG TAB PO PRN (10:44)
[2025-05-10] MEDS: ACETAMINOPHEN 325 MG TAB PO PRN (22:37)
[2025-05-11 03:16] VITALS: TEMP 98.1; O2SAT 97
--- NOTE | 2025-05-11 06:42 | Obstetrical Progress Note ---
Date of Service May 11, 2025 Assessment & Plan (1) examination following delivery: (2) Maternal care for malpresentation of fetus, unspecified, fetus 1: (3) growth restriction: (4) Discordant growth in twin gestation: (5) Carrier of spinal muscular atrophy: Plan 29 y/o POD 3 s/p for di/di twin delivery. complicated by twin B IUGR, twin A breech presentation, and twin growth discordancy. Rh(+), rubella immune. Feels well today. Vital signs stable Continue post- care Encourage ambulation and Pain controlled with ibuprofen Hgb stable Anticipate home discharge today, follow-up with Dr. Gauthier in 6 weeks. Admission and Anticipated Discharge Date Admission Date: May 08, 2025 Supervising Physician Co-Signing Physician Notes Resident Physician Supervision Note: I was present with Dr. Garcia during the history and exam. I discussed the case with the resident and agree with the findings and plan as documented in the note. Any exceptions or clarifications are listed here: [None] Documented By: Urmila Bach MD, FACOG Subjective 29 y/o POD 3 s/p for di/di twin delivery. complicated by twin B IUGR, twin A breech presentation, and twin growth discordancy. Ambulation: ambulating normally Voiding: no voiding problems Passing Gas:: yes Diet Tolerance:: regular diet Lochia:: Small Feeding Type:: breast with bottle supplement Current Pain Level: minimal, controlled with ibuprofen ; needed oxy overnight Resting comfortably this AM in NAD. Denies JOHNSON, CP, SOB, LE pain/swelling. Physical Exam Physical Exam: General: patient resting comfortably, NAD, non-toxic in appearance, AA&O x 4, answers questions appropriately. Skin: warm, dry, intact HEENT: NC/AT, anicteric sclera, conjunctiva without injection, moist mucus membranes. Heart: +S1/S2, regular, no m/r/g Lungs: equal air entry bilaterally, no rales/rhonchi/wheezes Abd: +BS, soft, NT/ND, uterine fundus firm at umbilicus, caesarean incision C/D/I. Ext: warm, no clubbing/cyanosis or edema Neuro: nonfocal, patient AA&O x 4, speech intact, no facial droop, moving all extremities on command. Results & Data Vital Signs (Past 12 Hours) Vital Signs Temp Pulse Resp BP Pulse Ox O2 Del Method 05/11/25 02:50 36.7 C 80 16 117/78 97 Room Air 05/10/25 20:08 36.5 C 77 18 113/76 98 Room Air
[2025-05-11 08:51] VITALS: RESP 20
[2025-05-11 13:30] VITALS: BP 124/81; PULSE 86
== END 2025-05-11 13:54 | disposition home or self-care (01) | DRG 788 ==
LOC: 4S1 05:35 → 4E2 10:34 → EDSTATUS 05-14 10:40